=== PATIENT | male | born 1945 | race Caucasian/White ===

== ENCOUNTER 2021-09-03 12:13 | Emergency (ER) | payer OTHER, BC ==
[~2021-09-03] VITALS: Ht 175.3 cm; Wt 70.3 kg
[2021-09-03 12:13] VITALS: BP_SYST 181
[2021-09-03 12:49] LABS: BASOPHILS # (AUTO) 0.1 K/uL (0.0-0.2); BASOPHILS % (AUTO) 1.2 % (0.0-2.0); EOSINOPHILS # (AUTO) 0.1 K/uL (0.0-0.4); EOSINOPHILS % (AUTO) 1.2 % (0.0-4.0); HEMATOCRIT 46.4 % (36-54); HEMOGLOBIN 15.7 g/dL (14.0-18.0); LYMPHOCYTES # (AUTO) 0.9 K/uL (1.0-5.5); LYMPHOCYTES % (AUTO) 11.9 % (20.5-51.5); MEAN CORPUSCULAR HEMOGLOBIN 30 pg (27-31); MEAN CORPUSCULAR HGB CONC 34 % (32-36); MEAN CORPUSCULAR VOLUME 90 fL (79.0-98.0); MONOCYTES # (AUTO) 0.2 K/uL (0.0-1.0); MONOCYTES % (AUTO) 2.4 % (1.7-9.3); NEUTROPHILS # (AUTO) 6.3 K/uL (1.8-7.7); NEUTROPHILS % (AUTO) 83.3 % (40.0-70.0); PLATELET COUNT (AUTO) 230 K/uL (130-430); RED BLOOD CELL COUNT(AUTO) 5.15 MIL/uL (4.2-6.2); WHITE BLOOD COUNT (AUTO) 7.6 K/uL (4.8-10.8)
[2021-09-03 13:03] LABS: ANION GAP 14 (5-15); CHLORIDE 102 mmol/L (98-107); CREATININE 0.87 mg/dL (0.55-1.30); GLUCOSE 151 mg/dL (70-99); POTASSIUM 3.3 mmol/L (3.5-5.1); PROTHROMBIN TIME 10.2 SECS (9.5-12.5); SODIUM SERUM 140 mmol/L (136-145); UREA NITROGEN, BLOOD 14 mg/dL (8-21)
[2021-09-03 13:19] LABS: ALANINE AMINOTRANSFERASE 19 U/L (12-78); ALBUMIN 3.8 g/dL (3.4-4.8); ASPARTATE AMINOTRANSFERASE 25 U/L (10-37); TOTAL BILIRUBIN 0.8 mg/dL (0.0-1.0)
[2021-09-03] MEDS ORDERED: IOHEXOL 350 mgI/mL, 150 ML INFUS..BTL IV ONE (13:58)
[2021-09-03 16:09] VITALS: BP_SYST 145
== END 2021-09-03 15:50 | disposition left against medical advice (07) ==
LOC: SED 12:13
DX: G45.9 Transient cerebral ischemic attack, unspecified (principal); I10 Essential (primary) hypertension; Z85.01 Personal history of malignant neoplasm of esophagus; Z79.899 Other long term (current) drug therapy
CPT/HCPCS: 36415; 70450; 70496; 70498; 71045; 76376; 80053; 84484; 85025; 85610; 85730; 86886; 86900; 86901; 93005; 99285; Q9967

== ENCOUNTER 2023-01-27 17:52 | Inpatient (IN) | payer BC, OTHER ==
[~2023-01-27] VITALS: Ht 175.3 cm; Wt 67.1 kg
[2023-01-27 18:03] VITALS: RESP 50; TEMP 97.9
[2023-01-27] MEDS ORDERED: NS 1000 ML IV.SOLN IV ONE (18:15)
[2023-01-27] MEDS ORDERED: cefTRIAXone 1 GM IVPB PREMIX 50 ML IV ONE (18:15)
[2023-01-27 18:45] LABS: MEAN CORPUSCULAR HEMOGLOBIN 24 pg (27-31); MEAN CORPUSCULAR HGB CONC 27 % (32-36); MEAN CORPUSCULAR VOLUME 87 fL (79.0-98.0); PLATELET COUNT (AUTO) 344 K/uL (130-430); RED BLOOD CELL COUNT(AUTO) 2.28 MIL/uL (4.2-6.2); RED CELL DISTRIBUTION WIDTH 22.6 % (9.0-15.0)
[2023-01-27] MEDS ORDERED: NOREPINEPHRINE BITARTRATE 4 MG in NS 246 ML IV ONE (18:45)
[2023-01-27] MEDS ORDERED: NOREPINEPHRINE 4 MG/4 ML VIAL IV ONE ×4 (18:46→23:55)
[2023-01-27 18:56] LABS: BILIRUBIN,URINE NEGATIVE (NEGATIVE); BLOOD, URINE NEGATIVE (NEGATIVE); CLARITY/URINE CLEAR (CLEAR); COLOR,URINE YELLOW (YELLOW); GLUCOSE,URINE NEGATIVE (NEGATIVE); KETONES,URINE NEGATIVE (NEGATIVE); LEUKOCYTE ESTERASE ,URINE NEGATIVE (NEGATIVE); NITRITE, URINE NEGATIVE (NEGATIVE); PH,URINE 5.5 (5.0-8.0); PROTEIN URINE 1+ (NEGATIVE); UROBILINOGEN,URINE 0.2 (0.2-1.0)
[2023-01-27 19:03] LABS: BACTERIA,URINE RARE /HPF (None Seen); MUCUS,URINE None Seen /LPF (None Seen); RBC,URINE NONE SEEN /HPF (0-3); WBC,URINE 0-3 /HPF (0-3)
[2023-01-27 19:04] LABS: HEMATOCRIT 19.9 % (36-54); HEMOGLOBIN 5.4 g/dL (14.0-18.0); WHITE BLOOD COUNT (AUTO) 31.4 K/uL (4.8-10.8)
[2023-01-27 19:10] LABS: ACETAMINOPHEN 2 ug/mL (1-30); ALBUMIN 2.1 g/dL (3.4-4.8); ANION GAP 20 (5-15); ASPARTATE AMINOTRANSFERASE 14 U/L (10-37); CALCIUM 7.5 mg/dL (8.4-11.0); CHLORIDE 102 mmol/L (98-107); CREATININE 2.42 mg/dL (0.55-1.30); TOTAL BILIRUBIN 0.2 mg/dL (0.0-1.0); UREA NITROGEN, BLOOD 56 mg/dL (8-21)
[2023-01-27 19:11] LABS: GLUCOSE 484 mg/dL (74-106)
[2023-01-27 19:14] LABS: BAND % (MANUAL) 6 % (0-6); BASOPHILS % (MANUAL) 0 % (0-2); EOSINOPHILS % (MANUAL) 0 % (0-7); LYMPHOCYTES % (MANUAL) 8 % (20-46); METAMYELOCYTES % 1 % (0-0); MONOCYTES % (MANUAL) 4 % (0-11); MYELOCYTES % 3 % (0-0)
[2023-01-27] MEDS ORDERED: CALCIUM GLUCONATE 1 GM/10 ML VIAL IVP ONE (19:30)
[2023-01-27 19:35] LABS: ALANINE AMINOTRANSFERASE 14 U/L (12-78)
[2023-01-27] MEDS ORDERED: SODIUM BICARBONATE 8.4% JECT 50 MEQ/50 ML SYRINGE IVP ONE ×3 (19:45→22:48)
[2023-01-27] MEDS ORDERED: ALBUTEROL SULFATE 0.083% 2.5 MG/3 ML VIAL.NEB INH ONE (19:45)
[2023-01-27] MEDS ORDERED: NACL 0.9% 1,000 ML IV ONE (19:45)
[2023-01-27] MEDS ORDERED: INSULIN REGULAR, HUMAN 10 UNITS/0.1 ML, 3 ML VIAL IVP ONE (19:45)
[2023-01-27] MEDS ORDERED: iohexoL 350 mgI/mL, 100 ML INFUS..BTL IV ONE (20:08)
[2023-01-27] MEDS ORDERED: DEXTROSE 50% JECT 50 ML DISP.SYRIN IVP ONE (20:15)
[2023-01-27] MEDS ORDERED: PHENYLEPHRINE HCL 50 MG in NS 245 ML IV PRN (22:30)
[2023-01-27] MEDS ORDERED: SODIUM BICARBONATE 8.4% JECT 50 MEQ/50 ML SYRINGE ONE (22:45)
[2023-01-27] MEDS: NACL 0.9% 1,000 ML IV SCH ×2 (23:00→23:15)
[2023-01-27] MEDS ORDERED: SODIUM POLYSTYRENE SULFONATE 15 GM/60 ML UDBTL GT ONE (23:15)
[2023-01-27] MEDS ORDERED: DEXTROSE 50% JECT 50 ML DISP.SYRIN IVP PRN (23:15)
[2023-01-27] MEDS ORDERED: VANCOMYCIN HCL 750 MG in NS 250 ML IV ONE (23:15)
[2023-01-27] MEDS: PANTOPRAZOLE SODIUM 40 MG in NS 50 ML IV SCH (23:15)
[2023-01-27] MEDS ORDERED: NOREPINEPHRINE BITARTRATE 16 MG in NS 234 ML IV PRN (23:15)
[2023-01-27] MEDS ORDERED: PANTOPRAZOLE SODIUM 80 MG in NS 100 ML IVP ONE (23:15)
[2023-01-27] MEDS ORDERED: MEROPENEM 1 GM VIAL IV ONE (23:46)
[2023-01-27] MEDS ORDERED: VANCOMYCIN HCL 1000 MG/VIAL IV ONE (23:46)
[2023-01-27] MEDS ORDERED: PANTOPRAZOLE SODIUM 40 MG/VIAL (PROTONIX) ONE ×2 (23:56)
[2023-01-28] VITALS (29 sets, daily range): BP systolic 92–164; PULSE 111–137; RESP 15–38; TEMP 96.2–97.4; O2SAT 96–100
[2023-01-28] MEDS: MEROPENEM 1 GM in NS 100 ML IV SCH ×3 (00:45→23:15)
[2023-01-28] MEDS: NACL 0.9% 1,000 ML IV SCH ×6 (01:35→22:02)
[2023-01-28] MEDS: INSULIN REGULAR, HUMAN 100 UNITS/ML, 3 ML VIAL (humuLIN R) SUBCUT PRN ×5 (03:33→17:52)
[2023-01-28] MEDS ORDERED: PANTOPRAZOLE SODIUM 40 MG/VIAL (PROTONIX) ONE (04:29)
[2023-01-28] MEDS: PANTOPRAZOLE SODIUM 40 MG in NS 50 ML IV SCH ×5 (04:33→19:43)
[2023-01-28 07:34] LABS: BASOPHILS # (AUTO) 0.1 K/uL (0.0-0.2); BASOPHILS % (AUTO) 0.4 % (0.0-2.0); HEMATOCRIT 25.4 % (36-54); HEMOGLOBIN 7.7 g/dL (14.0-18.0); LYMPHOCYTES # (AUTO) 1.3 K/uL (1.0-5.5); LYMPHOCYTES % (AUTO) 4.6 % (20.5-51.5); MEAN CORPUSCULAR HEMOGLOBIN 27 pg (27-31); MEAN CORPUSCULAR HGB CONC 30 % (32-36); MEAN CORPUSCULAR VOLUME 88 fL (79.0-98.0); MONOCYTES # (AUTO) 1.2 K/uL (0.0-1.0); MONOCYTES % (AUTO) 4.2 % (1.7-9.3); NEUTROPHILS # (AUTO) 26.5 K/uL (1.8-7.7); NEUTROPHILS % (AUTO) 90.8 % (40.0-70.0); PLATELET COUNT (AUTO) 188 K/uL (130-430); RED BLOOD CELL COUNT(AUTO) 2.89 MIL/uL (4.2-6.2); RED CELL DISTRIBUTION WIDTH 19.1 % (9.0-15.0)
[2023-01-28 07:36] LABS: WHITE BLOOD COUNT (AUTO) 29.2 K/uL (4.8-10.8)
[2023-01-28 07:41] LABS: ALANINE AMINOTRANSFERASE 31 U/L (12-78); ALBUMIN 2.1 g/dL (3.4-4.8); ANION GAP 18 (5-15); CALCIUM 7.2 mg/dL (8.4-11.0); CHLORIDE 108 mmol/L (98-107); CREATININE 2.79 mg/dL (0.55-1.30); GLUCOSE 323 mg/dL (74-106); UREA NITROGEN, BLOOD 71 mg/dL (8-21)
[2023-01-28 08:01] LABS: ASPARTATE AMINOTRANSFERASE 38 U/L (10-37); TOTAL BILIRUBIN 0.6 mg/dL (0.0-1.0)
[2023-01-28 09:13] LABS: CHOLESTEROL 118 mg/dL (<200); HDL CHOLESTEROL 35 mg/dL (>45); TRIGLYCERIDES 203 mg/dL (30-150)
[2023-01-28] MEDS: ALBUMIN HUMAN 25% 50 ML IV SCH ×3 (09:16→17:49)
[2023-01-28 16:45] LABS: HEMATOCRIT 22.5 % (36-54); MEAN CORPUSCULAR HEMOGLOBIN 27 pg (27-31); MEAN CORPUSCULAR HGB CONC 31 % (32-36); MEAN CORPUSCULAR VOLUME 88 fL (79.0-98.0); PLATELET COUNT (AUTO) 184 K/uL (130-430); RED BLOOD CELL COUNT(AUTO) 2.57 MIL/uL (4.2-6.2); RED CELL DISTRIBUTION WIDTH 19.2 % (9.0-15.0); WHITE BLOOD COUNT (AUTO) 24.1 K/uL (4.8-10.8)
[2023-01-28 16:56] LABS: ANION GAP 17 (5-15); CALCIUM 7.8 mg/dL (8.4-11.0); CHLORIDE 113 mmol/L (98-107); CREATININE 2.52 mg/dL (0.55-1.30); GLUCOSE 217 mg/dL (74-106); UREA NITROGEN, BLOOD 78 mg/dL (8-21)
[2023-01-28 16:57] LABS: HEMOGLOBIN 6.9 g/dL (14.0-18.0)
[2023-01-28 17:04] LABS: BAND % (MANUAL) 5 % (0-6); BASOPHILS % (MANUAL) 0 % (0-2); CORRECTED WHITE BLOOD COUNT 22.5 K/uL (4.5-11.0); EOSINOPHILS % (MANUAL) 0 % (0-7); LYMPHOCYTES % (MANUAL) 1 % (20-46); MONOCYTES % (MANUAL) 1 % (0-11); MYELOCYTES % 1 % (0-0)
[2023-01-28] MEDS ORDERED: CEFEPIME 1 GM in D5W 50 ML IV SCH (18:00)
[2023-01-29] VITALS (25 sets, daily range): BP systolic 99–161; PULSE 98–135; RESP 17–33; TEMP 97.4–98.8; O2SAT 96–99
[2023-01-29] MEDS: INSULIN REGULAR, HUMAN 100 UNITS/ML, 3 ML VIAL (humuLIN R) SUBCUT PRN ×3 (01:12→18:42)
[2023-01-29] MEDS: NACL 0.9% 1,000 ML IV SCH ×2 (03:02→08:48)
[2023-01-29 04:30] LABS: BASOPHILS % (AUTO) 0.2 % (0.0-2.0); HEMATOCRIT 25.2 % (36-54); HEMOGLOBIN 8.1 g/dL (14.0-18.0); LYMPHOCYTES # (AUTO) 0.9 K/uL (1.0-5.5); LYMPHOCYTES % (AUTO) 4.6 % (20.5-51.5); MEAN CORPUSCULAR HEMOGLOBIN 27 pg (27-31); MEAN CORPUSCULAR HGB CONC 32 % (32-36); MEAN CORPUSCULAR VOLUME 85 fL (79.0-98.0); MONOCYTES # (AUTO) 0.9 K/uL (0.0-1.0); MONOCYTES % (AUTO) 4.9 % (1.7-9.3); NEUTROPHILS # (AUTO) 17.3 K/uL (1.8-7.7); NEUTROPHILS % (AUTO) 90.3 % (40.0-70.0); PLATELET COUNT (AUTO) 181 K/uL (130-430); RED BLOOD CELL COUNT(AUTO) 2.98 MIL/uL (4.2-6.2); RED CELL DISTRIBUTION WIDTH 18.4 % (9.0-15.0); WHITE BLOOD COUNT (AUTO) 19.2 K/uL (4.8-10.8)
[2023-01-29 04:51] LABS: ALANINE AMINOTRANSFERASE 17 U/L (12-78); ALBUMIN 2.9 g/dL (3.4-4.8); ANION GAP 15 (5-15); ASPARTATE AMINOTRANSFERASE 26 U/L (10-37); CALCIUM 8.5 mg/dL (8.4-11.0); CHLORIDE 112 mmol/L (98-107); CREATININE 2.54 mg/dL (0.55-1.30); GLUCOSE 243 mg/dL (74-106); LIPASE 87 U/L (73-393); PHOSPHORUS 4.8 mg/dL (2.7-4.5); THYROID STIMULATING HORMONE 0.86 uIu/mL (0.34-4.82); TOTAL BILIRUBIN 0.6 mg/dL (0.0-1.0); UREA NITROGEN, BLOOD 78 mg/dL (8-21)
[2023-01-29] MEDS: PANTOPRAZOLE SODIUM 40 MG in NS 50 ML IV SCH ×4 (05:15→20:21)
[2023-01-29] MEDS: ALBUMIN HUMAN 25% 50 ML IV SCH ×3 (09:00→20:20)
[2023-01-29] MEDS: MEROPENEM 1 GM in NS 100 ML IV SCH ×2 (11:31→23:43)
[2023-01-29] MEDS ORDERED: 0.45% NS 500 ML IV ONE (18:00)
[2023-01-30] VITALS (25 sets, daily range): BP systolic 98–114; PULSE 91–104; RESP 15–33; TEMP 97.1–98.8; O2SAT 24–99
[2023-01-30] MEDS: PANTOPRAZOLE SODIUM 40 MG in NS 50 ML IV SCH ×5 (03:56→21:43)
[2023-01-30 04:57] LABS: BASOPHILS % (AUTO) 0.3 % (0.0-2.0); EOSINOPHILS # (AUTO) 0.1 K/uL (0.0-0.4); EOSINOPHILS % (AUTO) 0.6 % (0.0-4.0); LYMPHOCYTES # (AUTO) 0.7 K/uL (1.0-5.5); LYMPHOCYTES % (AUTO) 6.6 % (20.5-51.5); MEAN CORPUSCULAR HEMOGLOBIN 27 pg (27-31); MEAN CORPUSCULAR HGB CONC 32 % (32-36); MEAN CORPUSCULAR VOLUME 85 fL (79.0-98.0); MONOCYTES # (AUTO) 0.6 K/uL (0.0-1.0); MONOCYTES % (AUTO) 5.4 % (1.7-9.3); NEUTROPHILS # (AUTO) 9.6 K/uL (1.8-7.7); NEUTROPHILS % (AUTO) 87.1 % (40.0-70.0); PLATELET COUNT (AUTO) 144 K/uL (130-430); RETICULOCYTE COUNT 5.7 % (0.5-1.5)
[2023-01-30 05:20] LABS: TOTAL IRON BIND. CAPACITY 237 ug/dL (250-450)
[2023-01-30 05:21] LABS: ALANINE AMINOTRANSFERASE 17 U/L (12-78); ALBUMIN 2.9 g/dL (3.4-4.8); ANION GAP 13 (5-15); ASPARTATE AMINOTRANSFERASE 19 U/L (10-37); CALCIUM 8.4 mg/dL (8.4-11.0); CHLORIDE 115 mmol/L (98-107); CREATININE 1.89 mg/dL (0.55-1.30); GLUCOSE 189 mg/dL (74-106); INR 1.1 (0.80-1.20); PROTHROMBIN TIME 11.6 SECS (9.5-12.5); TOTAL BILIRUBIN 0.7 mg/dL (0.0-1.0); UREA NITROGEN, BLOOD 68 mg/dL (8-21)
[2023-01-30] MEDS: 0.45% NACL 1,000 ML IV SCH ×2 (10:22→20:19)
[2023-01-30] MEDS: MEROPENEM 1 GM in NS 100 ML IV SCH ×2 (10:24→23:01)
[2023-01-30 15:15] LABS: INR 1.1 (0.80-1.20)
[2023-01-30 21:04] LABS: HEMATOCRIT 27.7 % (36-54); HEMOGLOBIN 8.7 g/dL (14.0-18.0)
[2023-01-31] VITALS (24 sets, daily range): BP systolic 95–129; PULSE 79–93; RESP 17–33; TEMP 97.4–98.3; O2SAT 95–100
[2023-01-31] MEDS: PANTOPRAZOLE SODIUM 40 MG in NS 50 ML IV SCH ×5 (02:01→22:15)
[2023-01-31] MEDS: 0.45% NACL 1,000 ML IV SCH ×2 (03:33→10:50)
[2023-01-31 05:46] LABS: BASOPHILS % (AUTO) 0.5 % (0.0-2.0); EOSINOPHILS # (AUTO) 0.3 K/uL (0.0-0.4); EOSINOPHILS % (AUTO) 2.9 % (0.0-4.0); HEMATOCRIT 26.4 % (36-54); HEMOGLOBIN 8.5 g/dL (14.0-18.0); LYMPHOCYTES # (AUTO) 0.7 K/uL (1.0-5.5); LYMPHOCYTES % (AUTO) 8.1 % (20.5-51.5); MEAN CORPUSCULAR HEMOGLOBIN 28 pg (27-31); MEAN CORPUSCULAR HGB CONC 32 % (32-36); MEAN CORPUSCULAR VOLUME 86 fL (79.0-98.0); MONOCYTES # (AUTO) 0.5 K/uL (0.0-1.0); MONOCYTES % (AUTO) 5.1 % (1.7-9.3); NEUTROPHILS # (AUTO) 7.5 K/uL (1.8-7.7); NEUTROPHILS % (AUTO) 83.4 % (40.0-70.0); PLATELET COUNT (AUTO) 143 K/uL (130-430); RED BLOOD CELL COUNT(AUTO) 3.08 MIL/uL (4.2-6.2); RED CELL DISTRIBUTION WIDTH 17.8 % (9.0-15.0)
[2023-01-31 05:56] LABS: PROTHROMBIN TIME 10.8 SECS (9.5-12.5)
[2023-01-31 06:08] LABS: ALANINE AMINOTRANSFERASE 16 U/L (12-78); ALBUMIN 2.6 g/dL (3.4-4.8); ANION GAP 8 (5-15); ASPARTATE AMINOTRANSFERASE 21 U/L (10-37); CALCIUM 8.3 mg/dL (8.4-11.0); CHLORIDE 116 mmol/L (98-107); CREATININE 1.51 mg/dL (0.55-1.30); GLUCOSE 170 mg/dL (74-106); TOTAL BILIRUBIN 0.6 mg/dL (0.0-1.0); UREA NITROGEN, BLOOD 53 mg/dL (8-21)
[2023-01-31 12:12] LABS: FOLATE (FOLIC ACID) 12.3 ng/mL (>3.0)
[2023-01-31] MEDS: MEROPENEM 1 GM in NS 100 ML IV SCH ×2 (12:14→23:15)
[2023-01-31] MEDS: D5W 1,000 ML IV SCH (18:30)
[2023-02-01] VITALS (20 sets, daily range): BP systolic 104–124; PULSE 76–90; RESP 16–24; TEMP 97–98; O2SAT 91–100
[2023-02-01] MEDS ORDERED: ATROPINE SULFATE 1 MG/10 ML SYRINGE IVP ONE (02:39)
[2023-02-01] MEDS: PANTOPRAZOLE SODIUM 40 MG in NS 50 ML IV SCH ×3 (03:26→13:43)
[2023-02-01 04:50] LABS: BASOPHILS % (AUTO) 0.4 % (0.0-2.0); EOSINOPHILS # (AUTO) 0.4 K/uL (0.0-0.4); HEMATOCRIT 30.1 % (36-54); HEMOGLOBIN 9.7 g/dL (14.0-18.0); LYMPHOCYTES # (AUTO) 0.8 K/uL (1.0-5.5); LYMPHOCYTES % (AUTO) 8.9 % (20.5-51.5); MEAN CORPUSCULAR HEMOGLOBIN 28 pg (27-31); MEAN CORPUSCULAR HGB CONC 32 % (32-36); MEAN CORPUSCULAR VOLUME 86 fL (79.0-98.0); MONOCYTES # (AUTO) 0.6 K/uL (0.0-1.0); MONOCYTES % (AUTO) 6.4 % (1.7-9.3); NEUTROPHILS # (AUTO) 7.4 K/uL (1.8-7.7); NEUTROPHILS % (AUTO) 80.3 % (40.0-70.0); PLATELET COUNT (AUTO) 167 K/uL (130-430); RED CELL DISTRIBUTION WIDTH 17.7 % (9.0-15.0); WHITE BLOOD COUNT (AUTO) 9.2 K/uL (4.8-10.8)
[2023-02-01 05:16] LABS: ANION GAP 8 (5-15); CALCIUM 8.1 mg/dL (8.4-11.0); CHLORIDE 114 mmol/L (98-107); CREATININE 1.32 mg/dL (0.55-1.30); GLUCOSE 137 mg/dL (74-106); UREA NITROGEN, BLOOD 40 mg/dL (8-21)
[2023-02-01] MEDS ORDERED: PROPOFOL DRIP 100 ML IV PRN (11:30)
[2023-02-01] MEDS: MEROPENEM 1 GM in NS 100 ML IV SCH (11:32)
[2023-02-01] MEDS: D5W 1,000 ML IV SCH (11:33)
[2023-02-01] MEDS ORDERED: TAMSULOSIN HCL 0.4 MG CAP PO ONE (13:00)
[2023-02-01] MEDS ORDERED: COMMUNICATION ORDER XX ONE (17:00)
[2023-02-01] MEDS ORDERED: SODIUM BICARBONATE 650 MG TABLET GT ONE (17:15)
[2023-02-01] MEDS ORDERED: LIPASE/PROTEASE/AMYLASE 1 CAP GT ONE (17:15)
[2023-02-01] MEDS: TAMSULOSIN HCL 0.4 MG CAP PO SCH (21:00)
[2023-02-01] MEDS: PANTOPRAZOLE SODIUM 40 MG/VIAL (PROTONIX) IVP SCH (21:30)
[2023-02-01] MEDS ORDERED: cefTRIAXone 1 GM IVPB PREMIX 50 ML IV ONE (21:39)
[2023-02-01] MEDS ORDERED: metroNIDAZOLE 500 mg/NS 100 ML IV ONE (21:39)
[2023-02-01] MEDS: cefTRIAXone 1 GM in D5W 50 ML IV SCH (22:08)
[2023-02-01] MEDS: metroNIDAZOLE 500 mg/NS 100 ML IV SCH (22:31)
[2023-02-02] VITALS (7 sets, daily range): BP systolic 91–149; PULSE 79–96; RESP 16–18; TEMP 97.1–98.6; O2SAT 96–98
[2023-02-02] MEDS: D5W 1,000 ML IV SCH ×2 (01:53→16:57)
[2023-02-02 05:36] LABS: BASOPHILS % (AUTO) 0.5 % (0.0-2.0); EOSINOPHILS # (AUTO) 0.5 K/uL (0.0-0.4); EOSINOPHILS % (AUTO) 4.9 % (0.0-4.0); HEMATOCRIT 31.3 % (36-54); HEMOGLOBIN 10.1 g/dL (14.0-18.0); LYMPHOCYTES % (AUTO) 9.6 % (20.5-51.5); MEAN CORPUSCULAR HEMOGLOBIN 28 pg (27-31); MEAN CORPUSCULAR HGB CONC 32 % (32-36); MEAN CORPUSCULAR VOLUME 86 fL (79.0-98.0); MONOCYTES # (AUTO) 0.6 K/uL (0.0-1.0); MONOCYTES % (AUTO) 6.4 % (1.7-9.3); NEUTROPHILS # (AUTO) 7.8 K/uL (1.8-7.7); NEUTROPHILS % (AUTO) 78.6 % (40.0-70.0); PLATELET COUNT (AUTO) 206 K/uL (130-430); RED BLOOD CELL COUNT(AUTO) 3.63 MIL/uL (4.2-6.2)
[2023-02-02 05:45] LABS: ALANINE AMINOTRANSFERASE 12 U/L (12-78); ALBUMIN 2.5 g/dL (3.4-4.8); ANION GAP 8 (5-15); ASPARTATE AMINOTRANSFERASE 24 U/L (10-37); CALCIUM 8.2 mg/dL (8.4-11.0); CHLORIDE 109 mmol/L (98-107); CREATININE 1.15 mg/dL (0.55-1.30); GLUCOSE 137 mg/dL (74-106); TOTAL BILIRUBIN 0.5 mg/dL (0.0-1.0); UREA NITROGEN, BLOOD 35 mg/dL (8-21)
[2023-02-02] MEDS: TAMSULOSIN HCL 0.4 MG CAP PO SCH ×2 (08:32→21:04)
[2023-02-02] MEDS: PANTOPRAZOLE SODIUM 40 MG/VIAL (PROTONIX) IVP SCH ×2 (08:36→21:04)
[2023-02-02] MEDS: metroNIDAZOLE 500 mg/NS 100 ML IV SCH ×2 (10:06→21:09)
[2023-02-02] MEDS ORDERED: MIDAZOLAM HCL 5 MG/5 ML VIAL ONE (14:52)
[2023-02-02] MEDS ORDERED: fentaNYL CITRATE/PF 100 MCG/2 ML AMP ONE (14:52)
[2023-02-02] MEDS ORDERED: DIATR MEGLU/DIATRIZ SOD 30 ML SOLUTION PO ONE (15:41)
[2023-02-02] MEDS ORDERED: SOD FERRIC GLUC COMPLEX/SUC 125 MG in NS 100 ML IV SCH (16:15)
[2023-02-02] MEDS ORDERED: MULTIVITAMINS,THERAPEUTIC 5 ML UDC GT SCH (21:00)
[2023-02-02] MEDS: HEPARIN SODIUM,PORCINE 5,000 UNITS/ML VIAL SUBCUT SCH (21:06)
[2023-02-02] MEDS: cefTRIAXone 1 GM in D5W 50 ML IV SCH (21:09)
[2023-02-03] VITALS: BP_SYST 122; PULSE 85; RESP 18; TEMP 97.1; O2SAT 98
[2023-02-03] MEDS: D5W 1,000 ML IV SCH ×2 (03:26→09:09)
[2023-02-03 06:09] LABS: BASOPHILS % (AUTO) 0.5 % (0.0-2.0); EOSINOPHILS # (AUTO) 0.4 K/uL (0.0-0.4); EOSINOPHILS % (AUTO) 4.2 % (0.0-4.0); HEMATOCRIT 32.3 % (36-54); HEMOGLOBIN 10.4 g/dL (14.0-18.0); LYMPHOCYTES # (AUTO) 0.9 K/uL (1.0-5.5); LYMPHOCYTES % (AUTO) 8.9 % (20.5-51.5); MEAN CORPUSCULAR HEMOGLOBIN 28 pg (27-31); MEAN CORPUSCULAR HGB CONC 32 % (32-36); MEAN CORPUSCULAR VOLUME 86 fL (79.0-98.0); MONOCYTES # (AUTO) 0.5 K/uL (0.0-1.0); MONOCYTES % (AUTO) 5.3 % (1.7-9.3); NEUTROPHILS % (AUTO) 81.1 % (40.0-70.0); PLATELET COUNT (AUTO) 260 K/uL (130-430); RED BLOOD CELL COUNT(AUTO) 3.74 MIL/uL (4.2-6.2); RED CELL DISTRIBUTION WIDTH 18.2 % (9.0-15.0); WHITE BLOOD COUNT (AUTO) 9.8 K/uL (4.8-10.8)
[2023-02-03 06:41] LABS: ANION GAP 8 (5-15); CALCIUM 8.1 mg/dL (8.4-11.0); CHLORIDE 107 mmol/L (98-107); CREATININE 1.14 mg/dL (0.55-1.30); GLUCOSE 131 mg/dL (74-106); UREA NITROGEN, BLOOD 30 mg/dL (8-21)
[2023-02-03 07:48] VITALS: BP_SYST 108; PULSE 82; RESP 20; TEMP 96.8; O2SAT 97
[2023-02-03] MEDS: metroNIDAZOLE 500 mg/NS 100 ML IV SCH ×2 (09:08→21:02)
[2023-02-03] MEDS: TAMSULOSIN HCL 0.4 MG CAP PO SCH ×2 (09:08→21:01)
[2023-02-03] MEDS: PANTOPRAZOLE SODIUM 40 MG/VIAL (PROTONIX) IVP SCH ×2 (09:08→21:01)
[2023-02-03] MEDS: HEPARIN SODIUM,PORCINE 5,000 UNITS/ML VIAL SUBCUT SCH (09:11)
[2023-02-03 11:17] VITALS: BP_SYST 135; PULSE 91; RESP 16; TEMP 97; O2SAT 93
[2023-02-03] MEDS ORDERED: CEPH250S PO (12:25)
[2023-02-03] MEDS ORDERED: METR-343 GT (12:27)
[2023-02-03] MEDS ORDERED: TAMS0.4C96 PO (12:30)
[2023-02-03] MEDS ORDERED: MULTIVITAMINS THERAPEUTIC GT (12:31)
[2023-02-03 15:04] VITALS: BP_SYST 113; PULSE 85; RESP 16; TEMP 98.4; O2SAT 93
[2023-02-03 17:54] VITALS: O2SAT 93
[2023-02-03 20:01] VITALS: BP_SYST 147; PULSE 84; RESP 18; TEMP 97.2; O2SAT 97
[2023-02-03] MEDS: cefTRIAXone 1 GM in D5W 50 ML IV SCH (21:02)
[2023-02-04 00:59] VITALS: BP_SYST 147; PULSE 84; RESP 18; TEMP 98.1; O2SAT 97
[2023-02-04] MEDS: D5W 1,000 ML IV SCH (05:14)
[2023-02-04 06:21] LABS: BASOPHILS % (AUTO) 0.3 % (0.0-2.0); EOSINOPHILS # (AUTO) 0.4 K/uL (0.0-0.4); EOSINOPHILS % (AUTO) 3.5 % (0.0-4.0); HEMATOCRIT 32.2 % (36-54); HEMOGLOBIN 10.3 g/dL (14.0-18.0); LYMPHOCYTES # (AUTO) 0.9 K/uL (1.0-5.5); LYMPHOCYTES % (AUTO) 8.3 % (20.5-51.5); MEAN CORPUSCULAR HEMOGLOBIN 28 pg (27-31); MEAN CORPUSCULAR HGB CONC 32 % (32-36); MEAN CORPUSCULAR VOLUME 86 fL (79.0-98.0); MONOCYTES # (AUTO) 0.6 K/uL (0.0-1.0); MONOCYTES % (AUTO) 5.3 % (1.7-9.3); NEUTROPHILS # (AUTO) 8.8 K/uL (1.8-7.7); NEUTROPHILS % (AUTO) 82.6 % (40.0-70.0); PLATELET COUNT (AUTO) 286 K/uL (130-430); RED BLOOD CELL COUNT(AUTO) 3.73 MIL/uL (4.2-6.2); RED CELL DISTRIBUTION WIDTH 18.2 % (9.0-15.0); WHITE BLOOD COUNT (AUTO) 10.6 K/uL (4.8-10.8)
[2023-02-04 07:11] LABS: ALANINE AMINOTRANSFERASE 7 U/L (12-78); ALBUMIN 2.2 g/dL (3.4-4.8); ANION GAP 7 (5-15); ASPARTATE AMINOTRANSFERASE 22 U/L (10-37); CALCIUM 8.2 mg/dL (8.4-11.0); CHLORIDE 104 mmol/L (98-107); CREATININE 1.04 mg/dL (0.55-1.30); GLUCOSE 149 mg/dL (74-106); TOTAL BILIRUBIN 0.3 mg/dL (0.0-1.0); UREA NITROGEN, BLOOD 24 mg/dL (8-21)
[2023-02-04 07:40] VITALS: BP_SYST 109; PULSE 86; RESP 18; TEMP 97.5; O2SAT 96
[2023-02-04] MEDS: TAMSULOSIN HCL 0.4 MG CAP PO SCH (09:10)
[2023-02-04] MEDS: PANTOPRAZOLE SODIUM 40 MG/VIAL (PROTONIX) IVP SCH (09:10)
[2023-02-04] MEDS: metroNIDAZOLE 500 mg/NS 100 ML IV SCH (09:11)
[2023-02-04 09:52] VITALS: BP_SYST 108; PULSE 86; RESP 18; TEMP 97.5; O2SAT 97
== END 2023-02-04 12:15 | disposition home health service (06) | DRG 871 ==
LOC: SED 17:52 → SIC 21:22 → STU 02-01 18:09
PROVIDERS: ADMIT Internal Medicine; ATTEND Internal Medicine
PROC: 02HV33Z Insertion of Infusion Device into Superior Vena Cava, Percutaneous Approach (ICD-10-PCS; principal; 2023-01-27)
PROC: B548ZZA Ultrasonography of Superior Vena Cava, Guidance (ICD-10-PCS; 2023-01-27)
PROC: 30233N1 Transfusion of Nonautologous Red Blood Cells into Peripheral Vein, Percutaneous Approach (ICD-10-PCS; 2023-01-28)
PROC: 5A09357 Assistance with Respiratory Ventilation, Less than 24 Consecutive Hours, Continuous Positive Airway Pressure (ICD-10-PCS; 2023-01-28)
PROC: 0DPDXUZ Removal of Feeding Device from Lower Intestinal Tract, External Approach (ICD-10-PCS; 2023-02-02)
PROC: 0DHA8UZ Insertion of Feeding Device into Jejunum, Via Natural or Artificial Opening Endoscopic (ICD-10-PCS; 2023-02-02)
DX: A41.9 Sepsis, unspecified organism (principal); E43 Unspecified severe protein-calorie malnutrition; J69.0 Pneumonitis due to inhalation of food and vomit; N17.0 Acute kidney failure with tubular necrosis; R65.21 Severe sepsis with septic shock; J96.90 Respiratory failure, unspecified, unspecified whether with hypoxia or hypercapnia; E87.20 Acidosis, unspecified; C15.5 Malignant neoplasm of lower third of esophagus; K94.23 Gastrostomy malfunction; E87.0 Hyperosmolality and hypernatremia; D62 Acute posthemorrhagic anemia; E87.5 Hyperkalemia; R13.10 Dysphagia, unspecified; K57.90 Diverticulosis of intestine, part unspecified, without perforation or abscess without bleeding; E86.1 Hypovolemia; R53.81 Other malaise; Y83.8 Other surgical procedures as the cause of abnormal reaction of the patient, or of later complication, without mention of misadventure at the time of the procedure; Y82.8 Other medical devices associated with adverse incidents; I12.9 Hypertensive chronic kidney disease with stage 1 through stage 4 chronic kidney disease, or unspecified chronic kidney disease; N18.9 Chronic kidney disease, unspecified; Z85.01 Personal history of malignant neoplasm of esophagus; Z86.711 Personal history of pulmonary embolism; Z86.718 Personal history of other venous thrombosis and embolism; Z86.73 Personal history of transient ischemic attack (TIA), and cerebral infarction without residual deficits; Z87.01 Personal history of pneumonia (recurrent); Z92.21 Personal history of antineoplastic chemotherapy; Z92.3 Personal history of irradiation; Z85.028 Personal history of other malignant neoplasm of stomach; Z68.21 Body mass index [BMI] 21.0-21.9, adult; Y92.89 Other specified places as the place of occurrence of the external cause
CPT/HCPCS: 36415; 36600; 70450-TC; 71045; 71250-TC; 76376; 78278-TC; 80048; 80053; 80061; 81000; 82607; 82728; 82746; 82803; 82962; 83037; 83540; 83550; 83605; 83690; 83735; 83880; 84100; 84443; 84484; 85007; 85018; 85025; 85027; 85044; 85379; 85610-TC; 85730-TC; 86886; 86900; 86901; 86920; 87040; 87081; 87086; 93005; 93306; 94640; 94660; 94760; 97110-GP; 97116-GP; 97163-GP; 97530-GP; 99291; 99292; A6209; C9113; G0378; G0480; G0481; J0461; J0610; J0696; J1644; J1815; J1956; J2185; J2250; J2916; J3010; J3370; J3490; J7030; J7050; J7060; J7613; P9021; P9046; Q9964; Q9967

== ENCOUNTER 2023-03-26 22:22 | Inpatient (IN) | payer BC, OTHER ==
[~2023-03-26] VITALS: Ht 177.8 cm; Wt 70.8 kg
[~2023-03-26 22:22] MED LIST: CEPH250S PO; METR-343 GT; MULTIVITAMINS THERAPEUTIC GT; TAMS0.4C96 PO
[2023-03-26 22:28] VITALS: BP_SYST 123; PULSE 105; RESP 15; TEMP 97.2; O2SAT 95
[2023-03-26] MEDS ORDERED: NACL 0.9% 1,000 ML IV ONE (23:00)
[2023-03-26] MEDS ORDERED: FAMOTIDINE PF 20 MG/2 ML VIAL IVP ONE (23:00)
[2023-03-26] MEDS ORDERED: FAMOTIDINE PF 20 MG/2 ML VIAL ONE (23:12)
[2023-03-26 23:27] LABS: BASOPHILS # (AUTO) 0.1 K/uL (0.0-0.2); BASOPHILS % (AUTO) 0.7 % (0.0-2.0); EOSINOPHILS # (AUTO) 0.3 K/uL (0.0-0.4); EOSINOPHILS % (AUTO) 2.5 % (0.0-4.0); LYMPHOCYTES # (AUTO) 0.9 K/uL (1.0-5.5); LYMPHOCYTES % (AUTO) 7.1 % (20.5-51.5); MEAN CORPUSCULAR HEMOGLOBIN 24 pg (27-31); MEAN CORPUSCULAR HGB CONC 30 % (32-36); MEAN CORPUSCULAR VOLUME 80 fL (79.0-98.0); MONOCYTES # (AUTO) 0.9 K/uL (0.0-1.0); MONOCYTES % (AUTO) 7.6 % (1.7-9.3); NEUTROPHILS # (AUTO) 10.1 K/uL (1.8-7.7); NEUTROPHILS % (AUTO) 82.1 % (40.0-70.0); PLATELET COUNT (AUTO) 553 K/uL (130-430); RED BLOOD CELL COUNT(AUTO) 2.02 MIL/uL (4.2-6.2); RED CELL DISTRIBUTION WIDTH 21.8 % (9.0-15.0); WHITE BLOOD COUNT (AUTO) 12.3 K/uL (4.8-10.8)
[2023-03-26 23:37] LABS: HEMOGLOBIN 4.9 g/dL (14.0-18.0)
[2023-03-26 23:38] LABS: HEMATOCRIT 16.1 % (36-54)
[2023-03-27 00:25] LABS: ALANINE AMINOTRANSFERASE 21 U/L (12-78); ALBUMIN 1.9 g/dL (3.4-4.8); ANION GAP 9 (5-15); ASPARTATE AMINOTRANSFERASE 29 U/L (10-37); CALCIUM 7.9 mg/dL (8.4-11.0); CARBON DIOXIDE 24 mmol/L (23-29); CHLORIDE 101 mmol/L (98-107); GLUCOSE 134 mg/dL (74-106); LIPASE 126 U/L (73-393); POTASSIUM 5.3 mmol/L (3.5-5.1); SODIUM SERUM 134 mmol/L (136-145); TOTAL BILIRUBIN 0.2 mg/dL (0.0-1.0); TOTAL PROTEIN, SERUM 6.7 g/dL (6.4-8.3); UREA NITROGEN, BLOOD 48 mg/dL (8-21)
[2023-03-27 00:53] LABS: BILIRUBIN,URINE NEGATIVE (NEGATIVE); BLOOD, URINE NEGATIVE (NEGATIVE); COLOR,URINE YELLOW (YELLOW); GLUCOSE,URINE NEGATIVE (NEGATIVE); KETONES,URINE NEGATIVE (NEGATIVE); LEUKOCYTE ESTERASE ,URINE NEGATIVE (NEGATIVE); NITRITE, URINE NEGATIVE (NEGATIVE); PH,URINE 7.5 (5.0-8.0); PROTEIN URINE 1+ (NEGATIVE); UROBILINOGEN,URINE 0.2 (0.2-1.0)
[2023-03-27 00:55] LABS: CLARITY/URINE HAZY (CLEAR)
[2023-03-27 01:02] LABS: BACTERIA,URINE None Seen /HPF (None Seen); RBC,URINE 0-3 /HPF (0-3); WBC,URINE 0-3 /HPF (0-3)
[2023-03-27] MEDS ORDERED: APIX5TAB GT (03:30)
[2023-03-27] MEDS ORDERED: MELA3TAB41 GT (03:30)
[2023-03-27] MEDS ORDERED: PRO40 GT (03:30)
[2023-03-27] MEDS ORDERED: ACET325T GT (03:30)
[2023-03-27 06:07] VITALS: BP_SYST 104; PULSE 110; RESP 18; TEMP 98.2
[2023-03-27 07:32] VITALS: O2SAT 94
[2023-03-27 08:00] VITALS: BP_SYST 107; PULSE 95; RESP 18; TEMP 98.2; O2SAT 90
[2023-03-27] MEDS: PANTOPRAZOLE SODIUM 40 MG/VIAL (PROTONIX) IVP SCH ×2 (08:43→21:55)
[2023-03-27 11:30] VITALS: BP_SYST 95; PULSE 104; RESP 18; TEMP 99; O2SAT 95
[2023-03-27] MEDS ORDERED: ACETAMINOPHEN 325 MG TABLET GT PRN (14:15)
[2023-03-27] MEDS ORDERED: metroNIDAZOLE 250 MG TABLET GT SCH (17:00)
[2023-03-27 17:30] VITALS: BP_SYST 101; PULSE 107; RESP 18; TEMP 98.4; O2SAT 94
[2023-03-27] MEDS ORDERED: CEPHALEXIN 250 MG/5 ML, 100 ML BTL PO SCH (18:00)
[2023-03-27 18:22] LABS: BASOPHILS # (AUTO) 0.1 K/uL (0.0-0.2); LYMPHOCYTES # (AUTO) 0.7 K/uL (1.0-5.5)
[2023-03-27 18:32] LABS: BASOPHILS % (AUTO) 0.9 % (0.0-2.0); EOSINOPHILS # (AUTO) 0.2 K/uL (0.0-0.4); EOSINOPHILS % (AUTO) 2.1 % (0.0-4.0); LYMPHOCYTES % (AUTO) 6.5 % (20.5-51.5); MEAN CORPUSCULAR HEMOGLOBIN 28 pg (27-31); MEAN CORPUSCULAR HGB CONC 33 % (32-36); MEAN CORPUSCULAR VOLUME 86 fL (79.0-98.0); MONOCYTES # (AUTO) 0.8 K/uL (0.0-1.0); MONOCYTES % (AUTO) 7.7 % (1.7-9.3); NEUTROPHILS # (AUTO) 8.9 K/uL (1.8-7.7); NEUTROPHILS % (AUTO) 82.8 % (40.0-70.0); PLATELET COUNT (AUTO) 479 K/uL (130-430); RED BLOOD CELL COUNT(AUTO) 2.55 MIL/uL (4.2-6.2); RED CELL DISTRIBUTION WIDTH 20.3 % (9.0-15.0); WHITE BLOOD COUNT (AUTO) 10.8 K/uL (4.8-10.8)
[2023-03-27 18:40] LABS: HEMATOCRIT 21.8 % (36-54)
[2023-03-27 18:42] LABS: HEMOGLOBIN 7.2 g/dL (14.0-18.0)
[2023-03-27] MEDS ORDERED: PANTOPRAZOLE SODIUM 40 MG TAB PO SCH (21:00)
[2023-03-27 21:21] VITALS: BP_SYST 100; PULSE 105; RESP 16; TEMP 98.2; O2SAT 97
[2023-03-27] MEDS: TAMSULOSIN HCL 0.4 MG CAP PO SCH (21:55)
[2023-03-27] MEDS: MELATONIN 3 MG TABLET GT SCH (21:56)
[2023-03-28 01:05] VITALS: BP_SYST 100; PULSE 100; RESP 18; TEMP 98.5; O2SAT 95
[2023-03-28 05:43] LABS: BASOPHILS # (AUTO) 0.1 K/uL (0.0-0.2); BASOPHILS % (AUTO) 0.8 % (0.0-2.0); EOSINOPHILS # (AUTO) 0.4 K/uL (0.0-0.4); EOSINOPHILS % (AUTO) 3.6 % (0.0-4.0); HEMATOCRIT 28.7 % (36-54); HEMOGLOBIN 9.5 g/dL (14.0-18.0); LYMPHOCYTES # (AUTO) 0.6 K/uL (1.0-5.5); LYMPHOCYTES % (AUTO) 5.8 % (20.5-51.5); MEAN CORPUSCULAR HEMOGLOBIN 28 pg (27-31); MEAN CORPUSCULAR HGB CONC 33 % (32-36); MEAN CORPUSCULAR VOLUME 85 fL (79.0-98.0); MONOCYTES # (AUTO) 0.8 K/uL (0.0-1.0); MONOCYTES % (AUTO) 7.7 % (1.7-9.3); NEUTROPHILS # (AUTO) 8.2 K/uL (1.8-7.7); NEUTROPHILS % (AUTO) 82.1 % (40.0-70.0); PLATELET COUNT (AUTO) 446 K/uL (130-430); RED BLOOD CELL COUNT(AUTO) 3.38 MIL/uL (4.2-6.2); RED CELL DISTRIBUTION WIDTH 18.3 % (9.0-15.0)
[2023-03-28 06:14] LABS: TOTAL IRON BIND. CAPACITY 224 ug/dL (250-450)
[2023-03-28 06:30] LABS: ALANINE AMINOTRANSFERASE 21 U/L (12-78); ALBUMIN 1.9 g/dL (3.4-4.8); ANION GAP 10 (5-15); ASPARTATE AMINOTRANSFERASE 24 U/L (10-37); CALCIUM 8.1 mg/dL (8.4-11.0); CARBON DIOXIDE 22 mmol/L (23-29); CHLORIDE 104 mmol/L (98-107); GLUCOSE 151 mg/dL (74-106); PHOSPHORUS 4.1 mg/dL (2.7-4.5); POTASSIUM 4.3 mmol/L (3.5-5.1); SODIUM SERUM 136 mmol/L (136-145); TOTAL BILIRUBIN 0.8 mg/dL (0.0-1.0); TOTAL PROTEIN, SERUM 6.8 g/dL (6.4-8.3); UREA NITROGEN, BLOOD 35 mg/dL (8-21)
[2023-03-28 08:00] VITALS: BP_SYST 105; PULSE 91; RESP 16; TEMP 98.8; O2SAT 96
[2023-03-28] MEDS: TAMSULOSIN HCL 0.4 MG CAP PO SCH ×2 (09:38→20:55)
[2023-03-28] MEDS: PANTOPRAZOLE SODIUM 40 MG/VIAL (PROTONIX) IVP SCH ×2 (09:38→20:57)
[2023-03-28 12:43] VITALS: BP_SYST 102; PULSE 101; RESP 17; TEMP 98.4; O2SAT 98
[2023-03-28 16:31] VITALS: BP_SYST 104; PULSE 95; RESP 16; TEMP 98.6; O2SAT 97
[2023-03-28 20:00] VITALS: BP_SYST 128; PULSE 97; RESP 18; TEMP 97.2; O2SAT 94
[2023-03-28 20:15] VITALS: O2SAT 94
[2023-03-28] MEDS: MELATONIN 3 MG TABLET GT SCH (20:55)
[2023-03-29] VITALS: BP_SYST 107; PULSE 107; RESP 16; TEMP 98.1; O2SAT 98
[2023-03-29 08:00] VITALS: BP_SYST 98; PULSE 104; RESP 15; TEMP 97.8; O2SAT 96
[2023-03-29 08:06] LABS: FOLATE (FOLIC ACID) 13.3 ng/mL (>3.0)
[2023-03-29] MEDS: PANTOPRAZOLE SODIUM 40 MG/VIAL (PROTONIX) IVP SCH (08:43)
[2023-03-29] MEDS: TAMSULOSIN HCL 0.4 MG CAP PO SCH (09:24)
[2023-03-29 09:34] VITALS: O2SAT 96
[2023-03-29 12:00] VITALS: BP_SYST 112; PULSE 63; RESP 17; TEMP 97.9; O2SAT 92
[2023-03-29 15:52] VITALS: BP_SYST 152; PULSE 101; RESP 16; TEMP 98.3; O2SAT 93
[2023-03-29 16:00] VITALS: BP_SYST 152; PULSE 101; RESP 18; TEMP 98.3; O2SAT 93
[2023-03-29] MEDS ORDERED: APIXABAN 2.5 MG TABLET GT SCH (21:00)
== END 2023-03-29 19:12 | DRG 811 ==
LOC: SED 22:22 → STU 03-27 00:15 → SMU 03-28 10:10
PROVIDERS: ADMIT Family Medicine; ATTEND Family Medicine
PROC: 30233N1 Transfusion of Nonautologous Red Blood Cells into Peripheral Vein, Percutaneous Approach (ICD-10-PCS; principal; 2023-03-27)
DX: D64.9 Anemia, unspecified (principal); E43 Unspecified severe protein-calorie malnutrition; C15.9 Malignant neoplasm of esophagus, unspecified; N17.9 Acute kidney failure, unspecified; E86.0 Dehydration; Z85.01 Personal history of malignant neoplasm of esophagus; Z93.1 Gastrostomy status; Z68.22 Body mass index [BMI] 22.0-22.9, adult
CPT/HCPCS: 36415; 80053; 81000; 82607; 82728; 82746; 83540; 83550; 83690; 83735; 84100; 85025; 86886; 86900; 86901; 86920; 87081; 96361; 96374; 99291; C9113; G0378; J3490; P9021

== ENCOUNTER 2023-03-31 13:04 | Inpatient (IN) | payer BC, OTHER ==
[~2023-03-31] VITALS: Ht 172.7 cm; Wt 69.5 kg
[~2023-03-31 13:04] MED LIST changes: +ACET325T GT; +APIX5TAB GT; -CEPH250S PO; +MELA3TAB41 GT; -METR-343 GT; +PRO40 GT
[2023-03-31 13:09] VITALS: BP_SYST 117; BP_SYST 90; PULSE 110; PULSE 77; RESP 20; TEMP 98; O2SAT 98
[2023-03-31 15:14] LABS: BASOPHILS # (AUTO) 0.1 K/uL (0.0-0.2); BASOPHILS % (AUTO) 0.9 % (0.0-2.0); EOSINOPHILS # (AUTO) 0.2 K/uL (0.0-0.4); HEMATOCRIT 24.4 % (36-54); HEMOGLOBIN 7.9 g/dL (14.0-18.0); LYMPHOCYTES # (AUTO) 0.7 K/uL (1.0-5.5); MEAN CORPUSCULAR HEMOGLOBIN 28 pg (27-31); MEAN CORPUSCULAR HGB CONC 32 % (32-36); MEAN CORPUSCULAR VOLUME 87 fL (79.0-98.0); MONOCYTES # (AUTO) 0.5 K/uL (0.0-1.0); MONOCYTES % (AUTO) 6.1 % (1.7-9.3); PLATELET COUNT (AUTO) 321 K/uL (130-430); RED BLOOD CELL COUNT(AUTO) 2.82 MIL/uL (4.2-6.2); RED CELL DISTRIBUTION WIDTH 20.7 % (9.0-15.0); WHITE BLOOD COUNT (AUTO) 8.4 K/uL (4.8-10.8)
[2023-03-31 15:51] LABS: ANION GAP 8 (5-15); CALCIUM 7.9 mg/dL (8.4-11.0); CARBON DIOXIDE 23 mmol/L (23-29); CHLORIDE 104 mmol/L (98-107); CREATININE 1.13 mg/dL (0.55-1.30); GLUCOSE 121 mg/dL (74-106); POTASSIUM 4.2 mmol/L (3.5-5.1); SODIUM SERUM 135 mmol/L (136-145); UREA NITROGEN, BLOOD 34 mg/dL (8-21)
[2023-03-31 15:56] LABS: ALANINE AMINOTRANSFERASE 15 U/L (12-78); ALBUMIN 1.7 g/dL (3.4-4.8); ASPARTATE AMINOTRANSFERASE 27 U/L (10-37); TOTAL BILIRUBIN 0.4 mg/dL (0.0-1.0); TOTAL PROTEIN, SERUM 6.5 g/dL (6.4-8.3)
[2023-03-31] MEDS ORDERED: D5/0.45 NS 1,000 ML IV ONE (17:30)
[2023-03-31] MEDS ORDERED: ROSU5TAB13 PO (17:45)
[2023-03-31] MEDS ORDERED: POLY238P32 PO (17:45)
[2023-03-31] MEDS ORDERED: ACETAMINOPHEN 650 MG SUPP.RECT RC PRN (18:00)
[2023-03-31 20:15] LABS: BLOOD GAS PH 7.519 (7.350-7.450)
[2023-03-31 20:16] LABS: BLOOD GAS PCO2 18.8 mmHg (32.0-45.0)
[2023-03-31 20:17] LABS: ABG O2 SAT% ESTIMATE 97.7 % (94.0-100.0); BLOOD GAS PO2 89.3 mmHg (75.0-100.0)
[2023-03-31] MEDS ORDERED: SODIUM BICARBONATE 8.4% JECT 50 MEQ/50 ML SYRINGE IVP ONE ×2 (20:30)
[2023-03-31] MEDS ORDERED: iohexoL 350 mgI/mL, 100 ML INFUS..BTL IV ONE (20:38)
[2023-03-31] MEDS ORDERED: ENOXAPARIN SODIUM 30 MG/0.3 ML SYRINGE SUBCUT SCH (21:00)
[2023-03-31 21:24] LABS: BASOPHILS # (AUTO) 0.1 K/uL (0.0-0.2); BASOPHILS % (AUTO) 0.7 % (0.0-2.0); EOSINOPHILS # (AUTO) 0.1 K/uL (0.0-0.4); EOSINOPHILS % (AUTO) 0.8 % (0.0-4.0); HEMOGLOBIN 8.6 g/dL (14.0-18.0); LYMPHOCYTES # (AUTO) 0.2 K/uL (1.0-5.5); LYMPHOCYTES % (AUTO) 1.8 % (20.5-51.5); MEAN CORPUSCULAR HEMOGLOBIN 28 pg (27-31); MEAN CORPUSCULAR HGB CONC 32 % (32-36); MEAN CORPUSCULAR VOLUME 87 fL (79.0-98.0); MONOCYTES # (AUTO) 0.1 K/uL (0.0-1.0); NEUTROPHILS # (AUTO) 11.9 K/uL (1.8-7.7); NEUTROPHILS % (AUTO) 95.7 % (40.0-70.0); PLATELET COUNT (AUTO) 395 K/uL (130-430); RED BLOOD CELL COUNT(AUTO) 3.12 MIL/uL (4.2-6.2); RED CELL DISTRIBUTION WIDTH 20.6 % (9.0-15.0); WHITE BLOOD COUNT (AUTO) 12.4 K/uL (4.8-10.8)
[2023-03-31 21:54] LABS: CREATINE KINASE, TOTAL 28 U/L (39-308)
[2023-03-31] MEDS ORDERED: SODIUM BICARBONATE 8.4% JECT 50 MEQ/50 ML SYRINGE ONE (21:54)
[2023-03-31] MEDS: SODIUM BICARBONATE 8.4% JECT 150 MEQ in D5W 1,000 ML IVP SCH (22:13)
[2023-03-31 22:37] VITALS: BP_SYST 97; PULSE 96; O2SAT 96
[2023-03-31] MEDS: IPRATROPIUM/ALBUTEROL SULFATE 3 ML AMPUL.NEB (DUONEB) INH SCH (22:55)
[2023-03-31 23:16] VITALS: BP_SYST 112; PULSE 126; RESP 20; TEMP 98.5
[2023-03-31 23:33] VITALS: O2SAT 95
[2023-04-01] VITALS (16 sets, daily range): BP systolic 66–108; PULSE 33–145; RESP 13–51; TEMP 97.5; O2SAT 82–99
[2023-04-01] MEDS: PIPERACILLIN/TAZO 2.25G/DEX-IS 50 ML IV SCH ×3 (01:46→11:07)
[2023-04-01] MEDS: IPRATROPIUM/ALBUTEROL SULFATE 3 ML AMPUL.NEB (DUONEB) INH SCH ×3 (02:20→11:00)
[2023-04-01] MEDS ORDERED: ENOXAPARIN SODIUM 80 MG/0.8 ML SYRINGE SUBCUT STA (03:12)
[2023-04-01 04:03] LABS: BASOPHILS % (AUTO) 0.3 % (0.0-2.0); EOSINOPHILS # (AUTO) 0.1 K/uL (0.0-0.4); EOSINOPHILS % (AUTO) 0.5 % (0.0-4.0); HEMATOCRIT 30.5 % (36-54); HEMOGLOBIN 9.6 g/dL (14.0-18.0); LYMPHOCYTES # (AUTO) 0.3 K/uL (1.0-5.5); LYMPHOCYTES % (AUTO) 2.6 % (20.5-51.5); MEAN CORPUSCULAR HEMOGLOBIN 28 pg (27-31); MEAN CORPUSCULAR HGB CONC 32 % (32-36); MEAN CORPUSCULAR VOLUME 88 fL (79.0-98.0); MONOCYTES # (AUTO) 0.1 K/uL (0.0-1.0); MONOCYTES % (AUTO) 0.5 % (1.7-9.3); NEUTROPHILS # (AUTO) 10.6 K/uL (1.8-7.7); NEUTROPHILS % (AUTO) 96.1 % (40.0-70.0); PLATELET COUNT (AUTO) 412 K/uL (130-430); RED BLOOD CELL COUNT(AUTO) 3.47 MIL/uL (4.2-6.2); RED CELL DISTRIBUTION WIDTH 20.8 % (9.0-15.0)
[2023-04-01 04:14] LABS: INR 1.2 (0.80-1.20)
[2023-04-01 04:25] LABS: ALANINE AMINOTRANSFERASE 16 U/L (12-78); ALBUMIN 2.1 g/dL (3.4-4.8); ANION GAP 16 (5-15); ASPARTATE AMINOTRANSFERASE 33 U/L (10-37); CALCIUM 8.4 mg/dL (8.4-11.0); CARBON DIOXIDE 24 mmol/L (23-29); CHLORIDE 102 mmol/L (98-107); CREATININE 1.41 mg/dL (0.55-1.30); GLUCOSE 90 mg/dL (74-106); POTASSIUM 4.3 mmol/L (3.5-5.1); SODIUM SERUM 142 mmol/L (136-145); TOTAL BILIRUBIN 0.6 mg/dL (0.0-1.0); TOTAL PROTEIN, SERUM 7.8 g/dL (6.4-8.3); UREA NITROGEN, BLOOD 36 mg/dL (8-21)
[2023-04-01] MEDS ORDERED: *LOVENOX 1MG/KG Q12H/PHARMACY XX PRN (05:15)
[2023-04-01] MEDS ORDERED: ALBUMIN HUMAN 25% 100 ML IV ONE ×2 (08:45→08:59)
[2023-04-01] MEDS ORDERED: NS 500 ML IV ONE (08:45)
[2023-04-01] MEDS ORDERED: PHENYLEPHRINE HCL 50 MG in NS 245 ML IV PRN (08:45)
[2023-04-01] MEDS: SODIUM BICARBONATE 8.4% JECT 150 MEQ in D5W 1,000 ML IVP SCH ×2 (09:50→11:07)
[2023-04-01 11:22] LABS: BLOOD GAS PH 7.595 (7.350-7.450)
[2023-04-01 11:23] LABS: ABG O2 SAT% ESTIMATE 99.4 % (94.0-100.0); BLOOD GAS BASE EXCESS 2.4 mmol/L (-3.0-3.0); BLOOD GAS HCO3 22.2 mmol/L (21.0-27.0); BLOOD GAS PCO2 23.4 mmHg (32.0-45.0)
[2023-04-01] MEDS ORDERED: ENOXAPARIN SODIUM 80 MG/0.8 ML SYRINGE SUBCUT SCH (18:00)
== END 2023-04-01 12:11 | DRG 871 ==
LOC: SED 13:04 → SMU 16:57 → SIC 19:05
PROVIDERS: ADMIT Internal Medicine; ATTEND Internal Medicine
DX: A41.9 Sepsis, unspecified organism (principal); E43 Unspecified severe protein-calorie malnutrition; J18.9 Pneumonia, unspecified organism; I26.99 Other pulmonary embolism without acute cor pulmonale; J96.00 Acute respiratory failure, unspecified whether with hypoxia or hypercapnia; R65.21 Severe sepsis with septic shock; K94.23 Gastrostomy malfunction; C15.9 Malignant neoplasm of esophagus, unspecified; I31.39 Other pericardial effusion (noninflammatory); E87.20 Acidosis, unspecified; N17.9 Acute kidney failure, unspecified; J90 Pleural effusion, not elsewhere classified; I48.91 Unspecified atrial fibrillation; R13.10 Dysphagia, unspecified; N40.0 Benign prostatic hyperplasia without lower urinary tract symptoms; D64.9 Anemia, unspecified; I46.9 Cardiac arrest, cause unspecified; E78.5 Hyperlipidemia, unspecified; I10 Essential (primary) hypertension; F03.A0 Unspecified dementia, mild, without behavioral disturbance, psychotic disturbance, mood disturbance, and anxiety; Z66 Do not resuscitate; Z91.09 Other allergy status, other than to drugs and biological substances; Z95.828 Presence of other vascular implants and grafts; Z92.3 Personal history of irradiation; Z92.21 Personal history of antineoplastic chemotherapy; Z91.048 Other nonmedicinal substance allergy status; Z86.73 Personal history of transient ischemic attack (TIA), and cerebral infarction without residual deficits; Z86.718 Personal history of other venous thrombosis and embolism; Z86.711 Personal history of pulmonary embolism; Z86.16 Personal history of COVID-19; Z85.01 Personal history of malignant neoplasm of esophagus; Z79.899 Other long term (current) drug therapy; Z79.01 Long term (current) use of anticoagulants; Z74.01 Bed confinement status
CPT/HCPCS: 36415; 36600; 71045; 71275; 76376; 80053; 82550; 82800-TC; 82803; 82962; 83605; 83880; 84484; 85025; 85610-TC; 85730-TC; 87040; 87081; 93005; 94760; 96360; 99285; J1650; J2370; J2543; J7050; J7060; P9046; Q9967